=== PATIENT | male | born 1990 | race Caucasian/White ===

== ENCOUNTER 2017-03-25 10:06 | Emergency (ER) | payer OTHER, BC ==
[~2017-03-25] VITALS: Ht 180.3 cm; Wt 84.6 kg
[2017-03-25 10:08] VITALS: BP 147/64; PULSE 79; RESP 18; TEMP 98.1; O2SAT 98
--- NOTE | 2017-03-25 10:49 | PD ---
HPI Chief Complaint: Medical Clearance Time Seen by Provider: 10:46 Travel History International Travel<30 days: No Contact w/Intl Traveler<30days: No Traveled to known affect area: No History of Present Illness HPI 26-year-old male patient here several weeks ago for back strain, returning because he needs medical clearance to go back to work. He states that he has not had any significant pain, has been lifting without issues and denies any other symptoms. Modifying Factors: None Associated Signs & Symptoms: Request for medical clearance to go back to work after back strain Risk Factors: None History Social History Alcohol Use: Yes (social drinker) Tobacco Use: Yes (<10 a day) Allergies-Medications (Allergen,Severity, Reaction): Coded Allergies: No Known Allergies (Verified , 03/25/17) Reported Meds & Prescriptions Reported Meds & Active Scripts Active No Active Prescriptions or Reported Medications Review of Systems Except as stated in HPI: all other systems reviewed are Neg Physical Exam Narrative GENERAL: Well-nourished, well-developed well-developed young white male patient in no acute distress. Awake, alert, oriented 3. Caring his [id number] daughter ran without issues. SKIN: Focused skin assessment warm/dry. HEAD: Normocephalic. EYES: No scleral icterus. No injection or drainage. NECK: Supple, trachea midline. No JVD or lymphadenopathy. Supple. CARDIOVASCULAR: Regular rate and rhythm without murmurs, gallops, or rubs. RESPIRATORY: Breath sounds equal bilaterally. No accessory muscle use. GASTROINTESTINAL: Abdomen soft, non-tender, nondistended. BACK: No CVA tenderness. No rash. No point tenderness on palpation of the spine. MUSCULOSKELETAL: No cyanosis, or edema. BACK: Nontender without obvious deformity. No CVA tenderness. Data Data Last Documented VS Vital Signs Date Time Temp Pulse Resp B/P (MAP) Pulse Ox O2 Delivery O2 Flow Rate FiO2 03/25/17 10:08 98.1 79 18 147/64 (91) 98 Room Air MDM Medical Screen Exam Complete: Yes Emergency Medical Condition: No Narrative Course There does not appear to be any medical emergency in this case. Patient should go to Workmen's Comp. site for further evaluation and treatment. Return for new issues as needed. Primary Impression: Back strain Qualified Codes: S39.012D - Strain of muscle, fascia and tendon of lower back , subsequent encounter Scripts No Active Prescriptions or Reported Meds Disposition: [facility]-ED USE ONLY Condition: Stable Vin Snider MD Mar 25, 2017 10:49
== END 2017-03-25 10:50 | disposition left against medical advice (07) ==
LOC: PHED 10:06 → PHEFT 10:50
DX: S39.012D Strain of muscle, fascia and tendon of lower back, subsequent encounter (principal); Z72.0 Tobacco use; X58.XXXD Exposure to other specified factors, subsequent encounter; Y99.0 Civilian activity done for income or pay
CPT/HCPCS: 99281